=== PATIENT | male | born 1990 ===

== ENCOUNTER 2017-03-02 06:39 | Day surgery (SDC) | payer OTHER ==
--- NOTE | 2017-02-27 22:14 | HP ---
CC: Dr. Aisha Becker, [facility], [facility] * ADMITTING HISTORY AND PHYSICAL: DATE OF ADMISSION: 03/02/17 ADMITTING DIAGNOSIS: Phimosis. PLANNED PROCEDURE: Circumcision. SURGEON: Dr. Hurtado. 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 He is now having increasing discomfort, especially during erections and was noted to have a moderate degree of phimosis. I discussed the procedure of circumcision in detail with him including the possible risks of bleeding, infection, altered appearance and sensation and he wishes to proceed with the circumcision. PAST MEDICAL HISTORY: Unremarkable. PAST SURGICAL HISTORY: Negative. MEDICATIONS ON ADMISSION: None. ALLERGIES: No known drug allergies. REVIEW OF SYSTEMS: He is otherwise in excellent health. There is no history of diabetes mellitus or any other major systemic illness. PHYSICAL EXAMINATION GENERAL: Reveals a pleasant, healthy-appearing young gentleman. VITAL SIGNS: Blood pressure is 118/70, pulse 64 per minute and regular, oxygen saturation 99% on room air. LUNGS: Clear bilaterally. CARDIOVASCULAR: Regular rate and rhythm. S1 and S2. ABDOMEN: Soft without masses. : Testicles are descended bilaterally and are normal. Phallus is uncircumcised with a moderate degree of phimosis. IMPRESSION: A 26-year-old gentleman with phimosis who is being brought in for a circumcision after a thorough discussion of the procedure and possible risks. [id number]/CPS #: [id number] MTDD
[~2017-03-02 06:39] MED LIST: Buffered Lidocaine 0.9% SYRIN* 5 ML/SYR SYRINGE INTRADERM ONE
[2017-03-02] MEDS ORDERED: Lidocaine 1% INJ* 10 MG/ML 30 ML SDV ONE (06:58)
[2017-03-02] MEDS ORDERED: Bacitracin OINTMENT* 1 TUBE ONE (06:58)
[2017-03-02] MEDS ORDERED: cefTRIAXone VIAL(*) 1,000 MG in NS 0.9% 50 ML* 50 ML IVPB ONE (07:00)
[2017-03-02] MEDS ORDERED: Midazolam* 1 MG/ML 5 ML VIAL (5 MG) ONE (07:44)
[2017-03-02] MEDS ORDERED: fentaNYL* 50 MCG/ML 2 ML VIAL (100 MCG VIAL) ONE (07:44)
[2017-03-02] MEDS ORDERED: Chloroprocaine 2%* 20 ML VIAL ONE (08:10)
[2017-03-02] MEDS ORDERED: Propofol* 10 MG/ML 20 ML BTL IV PUSH ONE (08:10)
[2017-03-02] MEDS ORDERED: Acetaminophen TAB* 325 MG PO PRN (09:20)
[2017-03-02] MEDS ORDERED: Ondansetron INJ* 2 MG/ML VIAL IV PRN (09:20)
[2017-03-02] MEDS ORDERED: Ibuprofen TAB* 600 MG PO PRN (09:20)
[2017-03-02 10:47] VITALS: BP 112/66
--- NOTE | 2017-03-03 11:33 | OP ---
OPERATIVE SUMMARY: DATE OF OPERATION: 03/02/17 DATE OF : 86 SURGEON: Nicholas Hurtado MD ANESTHESIOLOGIST: Dr. Bhat. ANESTHESIA: Spinal. PRE-OP DIAGNOSIS: Phimosis. POST-OP DIAGNOSIS: Phimosis. OPERATIVE PROCEDURE: Circumcision. COMPLICATIONS: None. BLOOD LOSS: Minimal. SPECIMENS: Foreskin. POSTOPERATIVE CONDITION: Stable. 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 DESCRIPTION OF PROCEDURE: After induction of spinal anesthesia, the patient was placed on the opera ting table in a supine position. Sequential compression devices were in place and functioning. Ext ernal genitalia were prepped and draped in the usual sterile fashion. Circumferential incision was made on the foreskin over the prominence of the coronal edges. The foreskin was then retracted and a second circumferential incision was made just proximal to the coronal edges. The foreskin between the 2 incisions were removed circumferentially. The cut edges were approximated using interrupted sutures of 3-0 and 4-0 Chromic. Bacitracin ointment was applied. Blood loss was minimal. All spon ge and instrument counts were correct. The patient tolerated the procedure satisfactorily and was t ransferred back to the recovery area in stable condition. [id number]/[facility] #: [id number]
== END 2017-03-02 11:43 | disposition home or self-care (01) ==
LOC: OR 06:39
PROVIDERS: ATTEND Urology
DX: N47.1 Phimosis (principal); N48.1 Balanitis
CPT/HCPCS: 88304; A9270-GY; J0696; J2001; J2250; J2400; J2704; J3010